=== PATIENT | female | born 1965 | race Hispanic/Latino ===

== ENCOUNTER 2017-08-24 05:49 | Day surgery (SDC) | payer OTHER ==
[2017-08-20 09:14] VITALS: BP 141/86
[2017-08-20 09:21] LABS: BASOPHILS % (AUTO) 0.6 % (0.0-5.0); EOSINOPHILS % (AUTO) 0.8 % (0.0-8.0); HEMATOCRIT 39.2 % (36-48); LYMPHOCYTES % (AUTO) 41.2 % (21.0-51.0); MEAN CORPUSCULAR HEMOGLOBIN 32.9 pg (27.0-33.0); MEAN CORPUSCULAR HGB CONC 34.2 g/dL (32.0-36.0); MEAN CORPUSCULAR VOLUME 96.3 fL (79-99); MONOCYTES % (AUTO) 7.7 % (3.0-13.0); NEUTROPHILS % (AUTO) 49.7 % (40.0-77.0); PLATELET COUNT (AUTO) 282 K/uL (130-400); RED BLOOD CELL COUNT(AUTO) 4.07 MIL/uL (4.00-5.50); WHITE BLOOD COUNT (AUTO) 6.1 K/uL (4.8-10.8)
[2017-08-20 09:25] LABS: APPEARANCE,URINE Clear (CLEAR); BILIRUBIN,URINE Negative (NEGATIVE); COLOR,URINE Yellow (YELLOW); GLUCOSE, URINE (UA) Negative (NEGATIVE); KETONES,URINE Negative (NEGATIVE); LEUKOCYTE ESTERASE ,URINE Moderate (NEGATIVE); NITRATE,URINE Negative (NEGATIVE); OCCULT BLOOD,URINE Negative (NEGATIVE); PROTEIN,URINE Negative (NEGATIVE)
[2017-08-20 09:27] LABS: CREATININE 0.8 mg/dL (0.5-1.5)
[2017-08-20 09:31] LABS: INR 0.95 (0.85-1.15); PARTIAL THROMBOPLASTIN TIME 23.3 SEC (26.3-35.5)
[2017-08-20 09:35] LABS: BACTERIA,URINE Rare /HPF (None Seen); RBC,URINE 0-1 /HPF (0-1); SQUAMOUS EPITHELIAL CELL,UR Few /LPF (0-2)
[~2017-08-24] VITALS: Ht 167.6 cm; Wt 80.9 kg
[2017-08-24] VITALS (11 sets, daily range): BP systolic 95–123; BP diastolic 56–87
[~2017-08-24 05:49] MED LIST: ASPI-555 PO; LOSA25TA21 PO; METO-391 PO; SODIUM CHLORIDE 0.9% 500ML 500 ML IV SCH
[2017-08-24] MEDS ORDERED: SODIUM CHLORIDE 0.9% 1000ML 1,000 ML IV ONE (06:27)
[2017-08-24] MEDS ORDERED: NITROGLYCERIN 5 MG/ML 10 ML VIAL IV ONE (07:14)
[2017-08-24] MEDS ORDERED: ISOVUE-370 50ML VIAL IV ONE (07:14)
[2017-08-24] MEDS ORDERED: HEPARIN SODIUM 1000UNIT/ML 10ML VIAL ONE (07:14)
[2017-08-24] MEDS ORDERED: IOPAMIDOL-370 100 ML VIAL IV ONE (07:14)
[2017-08-24] MEDS ORDERED: LIDOCAINE HCL 1% 20 ML VIAL ONE (07:15)
[2017-08-24] MEDS ORDERED: LIDOCAINE HCL 2% 20ML ONE (09:58)
[2017-08-24] MEDS ORDERED: NITROGLYCERIN 4.1 GM SPRAY TL ONE (10:21)
[2017-08-24] MEDS ORDERED: AMLO5TAB2 PO (10:42)
[2017-08-24] MEDS ORDERED: ACETAMINOPHEN EXTRA STRENGTH 500 MG TABLET ONE (11:55)
[2017-08-24] MEDS ORDERED: ACETAMINOPHEN EXTRA STRENGTH 500 MG TABLET PO SCH (12:15)
[2017-08-25] MEDS ORDERED: ASPIRIN 81 MG EC TAB PO SCH (09:00)
[2017-08-25] MEDS ORDERED: LOSARTAN 50 MG TABLET PO SCH (09:00)
== END 2017-08-24 15:35 | disposition home or self-care (01) ==
LOC: DAH 05:49
PROVIDERS: ATTEND Internal Medicine Cardiovascular Disease
DX: I20.9 Angina pectoris, unspecified (principal); Q24.0 Dextrocardia; I34.0 Nonrheumatic mitral (valve) insufficiency; I21.3 ST elevation (STEMI) myocardial infarction of unspecified site; I47.1 Supraventricular tachycardia; Z79.899 Other long term (current) drug therapy; Z68.42 Body mass index [BMI] 45.0-49.9, adult; Z88.8 Allergy status to other drugs, medicaments and biological substances
CPT/HCPCS: 36415; 71045; 80048; 81001; 85025; 85610; 85730; 87088; 93005; 93458; A4606; C1760; C1894; J1644; J3490 ×2; J7030; Q9967 ×2

== ENCOUNTER → 2019-06-28 | Outpatient (CLI) | payer OTHER ==
[~2019-06-28] MED LIST changes: +AMLO5TAB9 PO; -LOSA25TA21 PO; +LOSA25TA41 PO; -METO-391 PO; -SODIUM CHLORIDE 0.9% 500ML 500 ML IV SCH
== END | disposition home or self-care (01) ==
LOC: SLP 20:34
PROVIDERS: ATTEND Internal Medicine Cardiovascular Disease
DX: G47.33 Obstructive sleep apnea (adult) (pediatric) (principal); I10 Essential (primary) hypertension
CPT/HCPCS: 95810

== ENCOUNTER → 2019-06-30 | Outpatient (CLI) | payer OTHER | END | disposition home or self-care (01) | LOC: SLP 16:22 | PROVIDERS: ATTEND Internal Medicine Cardiovascular Disease | DX: G47.33 Obstructive sleep apnea (adult) (pediatric) (principal); I10 Essential (primary) hypertension | CPT/HCPCS: 95811 ==

== ENCOUNTER 2024-08-23 01:35 | Emergency (ER) | payer OTHER ==
[~2024-08-23] VITALS: Ht 167.6 cm; Wt 83.9 kg
[~2024-08-23 01:35] MED LIST changes: +AMLO-257 PO; -AMLO5TAB9 PO; -ASPI-555 PO; +ASPI-556 PO
[2024-08-23 01:54] LABS: BASOPHILS # (AUTO) 0.02 K/uL (0.00-0.20); BASOPHILS % (AUTO) 0.2 % (0.0-5.0); EOSINOPHILS # (AUTO) 0.03 K/uL (0.00-0.70); EOSINOPHILS % (AUTO) 0.4 % (0.0-8.0); HEMATOCRIT 37.1 % (36-48); IMMATURE GRANULOCYTE ABSOLUTE 0.02 K/uL (0-1); LYMPHOCYTES # (AUTO) 2.7 K/uL (1.0-4.8); LYMPHOCYTES % (AUTO) 32.8 % (21.0-51.0); MEAN CORPUSCULAR HEMOGLOBIN 32.4 pg (27.0-33.0); MEAN CORPUSCULAR HGB CONC 33.7 g/dL (32.0-36.0); MEAN CORPUSCULAR VOLUME 96.1 fL (79-99); MONOCYTES # (AUTO) 0.8 K/uL (0.1-1.0); MONOCYTES % (AUTO) 9.2 % (3.0-13.0); NEUTROPHILS # (AUTO) 4.6 K/uL (1.8-7.7); NEUTROPHILS % (AUTO) 57.2 % (40.0-77.0); PLATELET COUNT (AUTO) 260 K/uL (130-400); RED BLOOD CELL COUNT(AUTO) 3.86 MIL/uL (4.00-5.50); RED CELL DISTRIBUTION WIDTH 12.9 % (11.0-15.5); WHITE BLOOD COUNT (AUTO) 8.1 K/uL (4.8-10.8)
--- NOTE | 2024-08-23 01:58 | ERN ---
ED Note History of Present Illness Stated Complaint: CHEST PAIN Chief Complaint: Chest Pain Time Seen by MD: 01:39 Time Seen by Midlevel: 01:41 Dictation: Ms Estrada is a 59 year old female with history of dextrocardia, angina, tachycardia, hypertension, hyperlipidemia, and CAD/NV who presented to the Emergency Department this morning for evaluation of chest pain. She states that at midnight she developed right sided chest pain (rated 8/10) with right sided arm numbness. She states they pain occurred while at rest and was accompanied by shortness of breath. She had tachycardia and palpitations en route to hospital. She states she has frequent episodes of tachycardia and shortness of breath and usually will take NTG SL. She did not take any this morning because of the RUE numbness. She denies recent illness, fever, chills, cough, edema, abdominal pain, nausea, vomiting, diarrhea, dysuria, headache, or dizziness. Upon arrival to the ED pain decreased to 5/10. PCP: [facility] [place]: Dr. Denise Ramires [address] Light Lamp Cleaner: Dr. Rhett Hardwick Allergies: Coded Allergies: quinidine (Unverified Allergy, Severe, SWOLLEN TONGUE, 08/20/17) Emergency Care OFFICE ANALYST: None Home Meds Active Scripts Amlodipine Besylate (Amlodipine Besylate) 5 Mg Tablet, 5 MG PO DAILY for 30 Days, #30 TAB 3 Refills Prov:RHETT HARDWICK MD 08/24/17 Reported Medications Losartan Potassium (Losartan Potassium) 25 Mg Tablet, 25 MG PO DAILY, TAB 08/20/17 Aspirin (Aspir 81) 81 Mg Tablet.dr, 81 MG PO DAILY, TAB 08/20/17 Past Medical History Past Medical History: High Cholesterol, Hypertension, NV, Other Additional Past Medical Hx: DEXTRACARDIA Surgical History: None PSYCH History: no pertinent psych hx Social History: Negative, Lives with family History: Not Applicable RN Note Reviewed/Agreed w/PFSH: Yes Review of System Dictation REVIEW OF SYSTEMS: CONSTITUTIONAL: Patient denies fevers, chills, sweats and weight changes. EYES: Patient denies any visual symptoms. EARS, NOSE, AND THROAT: No difficulties with hearing. No symptoms of rhinitis or sore throat. CARDIOVASCULAR: Patient denies orthopnea and paroxysmal nocturnal dyspnea. Reports right sided chest pain rated 8/10 onset midnight. She states pain radiates to right arm. She states right arm feels heavy and numb. She states she had palpitations/tachycardia while on the way to the hospital. RESPIRATORY: No wheezing or cough. Reports shortness of breath. GI: No nausea, vomiting, diarrhea, constipation, abdominal pain, hematochezia or melena. : No urinary hesitancy or dribbling. No nocturia or urinary frequency. No abnormal urethral discharge. MUSCULOSKELETAL: No myalgias or arthralgias. NEUROLOGIC: No chronic headaches, no seizures. Patient denies numbness, tingling or weakness. PSYCHIATRIC: Patient denies problems with mood disturbance. No problems with anxiety. ENDOCRINE: No excessive urination or excessive thirst. DERMATOLOGIC: Patient denies any rashes or skin changes. Initial Vital Sign VS Vital Signs Date Time Temp Pulse Resp B/P (MAP) Pulse Ox O2 Delivery O2 Flow Rate FiO2 08/23/24 01:39 98.4 75 18 147/91 97 Room Air 0 08/23/24 01:48 21 Physical Exam Dictation Vital signs: Reviewed. Afebrile Constitutional: No acute distress. Non-toxic appearing. Head/Face: Normocephalic, atraumatic. Eyes: Periorbital areas with no swelling, redness, or edema. Lids and lashes are normal. Conjunctival injection is absent. Sclera anicteric. Pupils equal, round, reactive to light. ENT: Pinnas intact and no signs of trauma or erythema. Ear canals clear and no discharge. TMs no erythema. No nasal discharge or bleeding noted. Oropharynx with no exudate, redness, swelling, masses, exudates, or evidence of obstruction. Uvula midline. Mucous membranes moist. Neck: Trachea midline, no masses palpated, and no cervical lymphadenopathy. No swelling. Supple, full range of motion. Chest/Axilla: No tenderness, no crepitus, no paradoxical movement, no retractions. Cardiovascular: Regular rate, regular rhythm, no murmur, no gallops. Symmetric pulses. No peripheral edema. CP 5/10. Twelve lead EKG reflects a sinus rhythm without ST elevation or depression. BP 146/88. Respiratory: Respirations even and unlabored. Lung sounds clear; no wheezes, rales or rhonchi. Room air SpO2 98% Gastrointestinal: Inspection is normal. No distention is appreciated. Bowel sounds are normal. No mass or organomegaly . There is no tenderness. No rebound. No rigidity. No voluntary or involuntary guarding. No Roberts's sign. Neurological: Normal speech, gross motor function intact, gross sensory function intact. No focal weakness/Paresthesia. Landscaping Manager equal bilaterally/strong Musculoskeletal/Extremities: All extremities have full range of motion, no pain or tenderness on palpation. Symmetric pulses. Integumentary: Intact. Skin is normal color, warm and dry. Cap refill less than 2 seconds. Results (Laboratory/Radiology) Laboratory/Radiology Laboratory Tests Test 08/23/24 01:45 White Blood Count 8.1 K/uL (4.8-10.8) Red Blood Count 3.86 MIL/uL (4.00-5.50) L Hemoglobin 12.5 g/dL (12.0-16.0) Hematocrit 37.1 % (36-48) Mean Corpuscular Volume 96.1 fL (79-99) Mean Corpuscular Hemoglobin 32.4 pg (27.0-33.0) Mean Corpuscular Hemoglobin Concent 33.7 g/dL (32.0-36.0) Red Cell Distribution Width 12.9 % (11.0-15.5) Platelet Count 260 K/uL (130-400) Mean Platelet Volume 8.7 fL (7.5-10.5) Immature Granulocyte % (Auto) 0.2 % (0-1) Neutrophils (%) (Auto) 57.2 % (40.0-77.0) Lymphocytes (%) (Auto) 32.8 % (21.0-51.0) Monocytes (%) (Auto) 9.2 % (3.0-13.0) Eosinophils (%) (Auto) 0.4 % (0.0-8.0) Basophils (%) (Auto) 0.2 % (0.0-5.0) Neutrophils # (Auto) 4.6 K/uL (1.8-7.7) Lymphocytes # (Auto) 2.7 K/uL (1.0-4.8) Monocytes # (Auto) 0.8 K/uL (0.1-1.0) Eosinophils # (Auto) 0.03 K/uL (0.00-0.70) Basophils # (Auto) 0.02 K/uL (0.00-0.20) Absolute Immature Granulocyte (auto 0.02 K/uL (0-1) Nucleated Red Blood Cells 0.0 % (0.0-0.19) Sodium Level 135 mmol/L (136-145) L Potassium Level 3.8 mmol/L (3.5-5.1) Chloride Level 100 mmol/L (101-111) L Carbon Dioxide Level 30 mmol/L (21-32) Blood Urea Nitrogen 23 mg/dL (7-18) H Creatinine 0.8 mg/dL (0.5-1.0) Glomerular Filtration Rate Calc 85 mL/min (>90) Random Glucose 106 mg/dL (70-105) H Total Calcium 8.9 mg/dL (8.5-10.1) Magnesium Level 1.90 mg/dL (1.80-2.40) Total Bilirubin 0.3 mg/dL (0.2-1.0) Direct Bilirubin 0.1 mg/dL (0.0-0.3) Aspartate Amino Transf (AST/SGOT) 27 U/L (10-37) Alanine Aminotransferase (ALT/SGPT) 42 U/L (12-78) Alkaline Phosphatase 81 U/L (50-136) Total Creatine Kinase 179 U/L (21-232) Troponin I High Sensitivity 17 ng/L (4-50) B-Type Natriuretic Peptide 23 pg/mL (0-100) Total Protein 7.3 g/dL (6.0-8.3) Albumin 4.1 g/dL (3.5-5.0) Labs Reviewed?: Yes EKG Comment: EKG Interpretation: Time Reviewed: 134 Ventricular rate: 72 bpm MS Interval: 177 ms QRS duration: [address] segment elevation or depression. Clinical impression: Sinus rhythm EKG Reviewed and interpreted by Dr. Breanne Cisse X-RAY Comment: Chest x-ray revealed dextrocardia; clear lung guo as interpreted by myself ED Course ED Course Orders Procedure Category Date Status Time Vital Signs Per CPOE 08/23/24 Transmitted Routine 01:37 B-Type Natriuretic LAB 08/23/24 Complete Peptide 01:37 Chest 1vw RAD 08/23/24 Taken 01:37 12 Lead Ekg Tracing- EKG 08/23/24 Logged Technical 01:37 Oxygen By Nc/Pulse Ox CPOE 08/23/24 Transmitted 01:37 Maintain Iv CPOE 08/23/24 Transmitted 01:37 Iv Insertion CPOE 08/23/24 Transmitted 01:37 Cardiac Monitoring CPOE 08/23/24 Transmitted 01:37 Pulse Oximetry With CPOE 08/23/24 Transmitted Vs And Prn 01:37 Cbc With Differential LAB 08/23/24 Complete 01:37 Activity: Br W/Brp CPOE 08/23/24 Transmitted With Assist 01:37 Creatine Kinase, Total LAB 08/23/24 Complete 01:37 Troponin I High LAB 08/23/24 Complete Sensitivity 01:37 Urinalysis Profile LAB 08/23/24 In Process 01:37 Basic Metabolic Panel LAB 08/23/24 Complete 01:37 Aspirin 81mg Chew Tab PHA 08/23/24 Complete (Aspirin 81mg Chew 02:00 Nitroglycerin 0.4mg PHA 08/23/24 In Process Sl Tab (Nitrostat) 02:00 Hepatic Function Panel LAB 08/23/24 Complete 01:45 Magnesium LAB 08/23/24 Complete 01:45 Troponin I High LAB 08/23/24 Logged Sensitivity 02:16 Current Medications Medications (Trade) Dose Ordered Sig/Baylee Route PRN Reason Start Time Stop Time Status Last Admin Dose Admin Aspirin (Aspirin 81mg Chew Tab) 324 mg ONCE ONCE PO 08/23/24 02:00 08/23/24 02:01 DC 08/23/24 02:09 Nitroglycerin (Nitrostat) 0.4 mg AD PRN SL CHEST PAIN 08/23/24 02:00 09/22/24 01:59 08/23/24 02:09 Vital Signs Date Time Temp Pulse Resp B/P (MAP) Pulse Ox O2 Delivery O2 Flow Rate FiO2 08/23/24 02:11 72 16 132/84 97 Room Air* 0 21 08/23/24 01:48 98.4 69 14 146/88 99 Room Air* 0 21 08/23/24 01:39 98.4 75 18 147/91 97 Room Air 0 Vital signs stable. Twelve lead EKG reflects a sinus rhythm without acute ST changes. Chest x-ray revealed dextrocardia; lung guo are clear. Laboratory findings as noted below. No elevation of WBCs. H&H are stable. Na/Cl 135/100, BUN 23, and glucose 106. Troponin negative x 2. She received dose aspirin 324 as well as sublingual nitro x1. Chest pain resolved as well as numbness to the right arm. She would like to be discharged to home and states she will follow up with her retail specialist; Dr. Rhett Hardwick. She was provided with copies of her labs and EKG HEART Score Response (Comments) Value History: Moderate suspicion (+1) 1 EKG: Normal 0 Age: 45-65yrs (+1) 1 Risk Factors: 3+ risk factors (+2) 2 Initial Troponin: Normal limit (0) 0 HEART Score Risk: Mod Risk for MACE (4-6) Total 4 Medical Decision Making MDM MDM: Differential diagnosis: ACS, unstable angina muscle strain, electrolyte derangement Rationale: Tests considered and ordered secondary to shared decision making include: Lab, EKG, chest x-ray Previous outside records reviewed: Old ER visits. Risk of complication and/or morbidity or mortality of patient management: None Medications-Per medication reconciliation Need for hospitalization: Patient does not meet criteria for hospitalization. Need for emergency major/minor surgery: No There are no social concerns with this patient. Prescription drug management: Continue home meds, NTG Prescriptions will include symptomatic care Patient's prior external medical records from other ER visits were reviewed by me as indicated. Prior testing and results from previous visits were reviewed. Prior tests were taken into account with medical decision making and resource utilization, independent historian/historians were used to obtain complete medical history. I independently interpreted the test that were performed, results were reviewed by me and considered findings on radiology if ordered. Medical management and examination interpretation discussions were had by me with other qualified healthcare professionals as indicated for the patient's care. DX & DISP Disposition: Discharge Departure Impression: Primary Impression: Chest pain Additional Impression: Dextrocardia Condition: Stable Additional Instructions: Rest. Drink plenty of fluids continue to use your nitroglycerin sublinguals at home. Continue home medications. Keep a log of your symptoms. Follow up with retail specialist; Dr. Rhett Hardwick preferably this week. Take copy of your labs and EKG. Return to the emergency department for any worsening of symptoms or concerns. Referrals: Hollie RAMIRES MD (PCP) RHETT HARDWICK MD Time of Disposition: 02:47 TAL DARBY NP Aug 23, 2024 01:58
[2024-08-23 02:04] LABS: CREATININE 0.8 mg/dL (0.5-1.0); POTASSIUM 3.8 mmol/L (3.5-5.1)
[2024-08-23] MEDS: NITROGLYCERIN 0.4 MG SL TAB SL PRN (02:09)
[2024-08-23] MEDS: ASPIRIN 81MG CHEW TAB PO ONE (02:09)
[2024-08-23 02:10] LABS: ALBUMIN 4.1 g/dL (3.5-5.0); B-TYPE NATRIURETIC PEPTIDE 23 pg/mL (0-100); BILIRUBIN,DIRECT 0.1 mg/dL (0.0-0.3); BILIRUBIN,TOTAL 0.3 mg/dL (0.2-1.0); MAGNESIUM 1.9 mg/dL (1.80-2.40); TOTAL PROTEIN, SERUM 7.3 g/dL (6.0-8.3)
[2024-08-23 02:48] LABS: APPEARANCE,URINE CLEAR (CLEAR); BILIRUBIN,URINE NEGATIVE (NEGATIVE); COLOR,URINE COLORLESS (YELLOW); GLUCOSE, URINE (UA) NEGATIVE (NEGATIVE); KETONES,URINE NEGATIVE (NEGATIVE); LEUKOCYTE ESTERASE ,URINE 25 Leu/uL (NEGATIVE); NITRATE,URINE NEGATIVE (NEGATIVE); OCCULT BLOOD,URINE NEGATIVE (NEGATIVE); PH,URINE 5.5 (5.0-8.0); PROTEIN,URINE NEGATIVE (NEGATIVE); UROBILINOGEN,URINE 0.2 mg/dL (0.2-1.0)
[2024-08-23 02:49] LABS: ADD UA MICROSCOPIC YES; RBC,URINE 0-1 /HPF (0-1); SQUAMOUS EPITHELIAL CELL,UR RARE /HPF (0-2)
[2024-08-23 04:02] VITALS: BP 110/65; PULSE 70; RESP 15; TEMP 98.1; O2SAT 98
--- NOTE | 2024-08-23 06:27 | EKG ---
[facility] Test Date: 2024-08-23 Test Time: 01:35:23 Pat Name: JOSR DOBBINS Department: ED Room: Gender: F Pharmacist: [id number] : 1965 Requested By: MELISSA BRICE Order Number: [id number] Reading MD: Rhett Hardwick Measurements Intervals [place] Rate: 72 P: -79 IN: 177 QRS: 219 QRSD: 105 T: 50 QT: 388 QTc: 424 Interpretive Statements Normal Sinus Rhythm Milsplaced limb leads Anterolateral infarct, age indeterminate Compared to ECG 08/20/2017 09:06:20 Ectopic atrial rhythm now present Right ventricular hypertrophy now present Sinus rhythm no longer present First degree AV block no longer present Myocardial infarct finding still present Electronically Signed On 08-24-2024 13:41:06 CDT by Rhett Hardwick Please click the below link to view image of tracing.
--- NOTE | 2024-08-23 11:30 | HMCIMG ---
PORTABLE CHEST RADIOGRAPH INDICATION: CHEST PAIN COMPARISON: None FINDINGS: Dextrocardia. Heart size is normal. The pulmonary vascularity and teena appear normal. No abnormal pulmonary parenchymal opacity or consolidation identified. No significant pleural effusion noted. No pneumothorax detected. IMPRESSION: Dextrocardia without radiographic evidence for any acute cardiopulmonary process.
== END 2024-08-23 04:12 | disposition home or self-care (01) ==
LOC: EDH 01:35
DX: R07.89 Other chest pain (principal); Q24.0 Dextrocardia; E78.00 Pure hypercholesterolemia, unspecified; I25.2 Old myocardial infarction; I10 Essential (primary) hypertension; Z79.82 Long term (current) use of aspirin; Z79.899 Other long term (current) drug therapy
CPT/HCPCS: 36415; 71045; 80048; 80076; 81001; 82550; 83735; 83880; 84484; 85025; 93005; 99285

== ENCOUNTER 2024-08-31 18:06 | Emergency (ER) | payer OTHER ==
[~2024-08-31] VITALS: Ht 167.6 cm; Wt 83.9 kg
[2024-08-31 18:56] LABS: BASOPHILS # (AUTO) 0.03 K/uL (0.00-0.20); BASOPHILS % (AUTO) 0.4 % (0.0-5.0); EOSINOPHILS # (AUTO) 0.03 K/uL (0.00-0.70); EOSINOPHILS % (AUTO) 0.4 % (0.0-8.0); HEMATOCRIT 36.5 % (36-48); IMMATURE GRANULOCYTE ABSOLUTE 0.02 K/uL (0-1); LYMPHOCYTES # (AUTO) 2.1 K/uL (1.0-4.8); LYMPHOCYTES % (AUTO) 29.2 % (21.0-51.0); MEAN CORPUSCULAR HEMOGLOBIN 31.9 pg (27.0-33.0); MEAN CORPUSCULAR HGB CONC 32.6 g/dL (32.0-36.0); MEAN CORPUSCULAR VOLUME 97.9 fL (79-99); MONOCYTES # (AUTO) 0.6 K/uL (0.1-1.0); MONOCYTES % (AUTO) 8.9 % (3.0-13.0); NEUTROPHILS # (AUTO) 4.4 K/uL (1.8-7.7); NEUTROPHILS % (AUTO) 60.8 % (40.0-77.0); PLATELET COUNT (AUTO) 267 K/uL (130-400); RED BLOOD CELL COUNT(AUTO) 3.73 MIL/uL (4.00-5.50); RED CELL DISTRIBUTION WIDTH 13.2 % (11.0-15.5); WHITE BLOOD COUNT (AUTO) 7.2 K/uL (4.8-10.8)
--- NOTE | 2024-08-31 19:00 | HMCIMG ---
PORTABLE CHEST RADIOGRAPH INDICATION: Pain COMPARISON: 08/23/2024 FINDINGS: Dextrocardia. The pulmonary vascularity and teena appear normal. No abnormal pulmonary parenchymal opacity or consolidation identified. No significant pleural effusion noted. No pneumothorax detected. IMPRESSION: Dextrocardia without radiographic evidence for any acute cardiopulmonary process.
[2024-08-31 19:01] LABS: CREATININE 0.8 mg/dL (0.5-1.0); POTASSIUM 4.3 mmol/L (3.5-5.1)
--- NOTE | 2024-08-31 19:31 | NUR ---
PT CARE ASSUMED AT THIS TIME
--- NOTE | 2024-08-31 19:43 | NUR ---
URINE CUP GIVEN TO PT FOR URINE COLLECTION
[2024-08-31 20:00] LABS: APPEARANCE,URINE CLEAR (CLEAR); BILIRUBIN,URINE NEGATIVE (NEGATIVE); COLOR,URINE YELLOW (YELLOW); GLUCOSE, URINE (UA) NEGATIVE (NEGATIVE); KETONES,URINE 5 mg/dL (NEGATIVE); LEUKOCYTE ESTERASE ,URINE NEGATIVE Leu/uL (NEGATIVE); NITRATE,URINE NEGATIVE (NEGATIVE); OCCULT BLOOD,URINE NEGATIVE (NEGATIVE); PROTEIN,URINE NEGATIVE (NEGATIVE)
[2024-08-31 20:04] LABS: MUCUS,URINE RARE LPF (None Seen); SQUAMOUS EPITHELIAL CELL,UR RARE /HPF (0-2); YEAST,URINE BUDDING RARE /HPF (None Seen)
[2024-08-31 20:05] LABS: HCG,QUALITATIVE URINE NEGATIVE (NEGATIVE)
--- NOTE | 2024-08-31 21:24 | ERN ---
General Chief Complaint: Chest Pain Stated Complaint: CHEST PAIN Time Seen by MD: 18:11 Time Seen by Midlevel: 18:11 Source: patient History of Present Illness Initial Comments 59-year-old female who presents to the emergency department due to chest pain onset 1 hour prior to arrival. Patient states she took two sublingual nitros and four baby aspirins. Patient was evaluated for chest pain one week ago and was discharged home. Denies any difficulty breathing, headache or further associated symptoms. Patient reports she has been under lot of stress for the past couple of months. Allergies: Coded Allergies: quinidine (Unverified Allergy, Severe, SWOLLEN TONGUE, 08/20/17) Home Meds Active Scripts Amlodipine Besylate (Amlodipine Besylate) 5 Mg Tablet, 5 MG PO DAILY for 30 Days, #30 TAB 3 Refills Prov:RHETT SHANKS MD 08/24/17 Reported Medications Losartan Potassium (Losartan Potassium) 25 Mg Tablet, 25 MG PO DAILY, TAB 08/20/17 Aspirin (Aspir 81) 81 Mg Tablet.dr, 81 MG PO DAILY, TAB 08/20/17 Past Medical History Past Medical History: High Cholesterol, Hypertension, CT, Other Medical History Other: DEXTRACARDIA Past Surgical History: Other Surgical History Other: LEFT HEART CATHS Social History Social History: Negative, Lives with family Female( History) History: Not Applicable ROS Dictation Constitutional: Negative for fever,chills, and weight loss Eyes: Negative for injury, pain,redness, and discharge ENT: Negative for injury,pain or swelling Cardiovascular: Positive for chest pain Negative for palpitations, and edema Respiratory: Negative for shortness of breath, cough, and wheezing, Abdomen/GI: Negative for abdominal pain, nausea, vomiting, diarrhea, and constipation Back: Negative for injury and pain : Negative for painful urination, bleeding or discharge MS/Extremity: Negative for injury and deformity Skin: Negative for rash, and discoloration Neuro: Negative for headache, weakness, numbness, tingling, and seizure Psych: Negative for suicide ideation, homicidal ideation, and hallucinations Physical Exam Physical Exam Dictation General: awake, alert, no acute distress Head/Face: Normocephalic, atraumatic Eyes: PERRL, EOMI, normal conjuctiva ENT: oral cavity clear, oral mucosa moist Neck: Supple, normal range of motion Cardiovascular: RRR, normal S1/S2 Respiratory: CTAB, no respiratory distress, no rales or wheezes Abdomen: Soft, non-tender, non-distended, normal bowel sounds, no guarding or rebound. Skin: Warm, dry, normal turgor, no rash MS/Extremity: Pulses equal, no cyanosis, neurovascular intact, FROM Neuro: COAx4, GCS 15, strength 5/5, CN 2-12 intact, normal cerebellar exam, normal gait, Psych: Normal behavior, mood, and affect normal Results Laboratory and Microbiology Lab and Micro Result Laboratory Tests Test 08/31/24 18:38 08/31/24 19:52 08/31/24 20:34 White Blood Count 7.2 K/uL (4.8-10.8) Red Blood Count 3.73 MIL/uL (4.00-5.50) L Hemoglobin 11.9 g/dL (12.0-16.0) L Hematocrit 36.5 % (36-48) Mean Corpuscular Volume 97.9 fL (79-99) Mean Corpuscular Hemoglobin 31.9 pg (27.0-33.0) Mean Corpuscular Hemoglobin Concent 32.6 g/dL (32.0-36.0) Red Cell Distribution Width 13.2 % (11.0-15.5) Platelet Count 267 K/uL (130-400) Mean Platelet Volume 9.1 fL (7.5-10.5) Immature Granulocyte % (Auto) 0.3 % (0-1) Neutrophils (%) (Auto) 60.8 % (40.0-77.0) Lymphocytes (%) (Auto) 29.2 % (21.0-51.0) Monocytes (%) (Auto) 8.9 % (3.0-13.0) Eosinophils (%) (Auto) 0.4 % (0.0-8.0) Basophils (%) (Auto) 0.4 % (0.0-5.0) Neutrophils # (Auto) 4.4 K/uL (1.8-7.7) Lymphocytes # (Auto) 2.1 K/uL (1.0-4.8) Monocytes # (Auto) 0.6 K/uL (0.1-1.0) Eosinophils # (Auto) 0.03 K/uL (0.00-0.70) Basophils # (Auto) 0.03 K/uL (0.00-0.20) Absolute Immature Granulocyte (auto 0.02 K/uL (0-1) Nucleated Red Blood Cells 0.0 % (0.0-0.19) Sodium Level 145 mmol/L (136-145) Potassium Level 4.3 mmol/L (3.5-5.1) Chloride Level 107 mmol/L (101-111) Carbon Dioxide Level 30 mmol/L (21-32) Blood Urea Nitrogen 19 mg/dL (7-18) H Creatinine 0.8 mg/dL (0.5-1.0) Glomerular Filtration Rate Calc 85 mL/min (>90) Random Glucose 117 mg/dL (70-105) H Total Calcium 9.1 mg/dL (8.5-10.1) Troponin I High Sensitivity 9 ng/L (4-50) 10 ng/L (4-50) Urine Color YELLOW (YELLOW) Urine Appearance CLEAR (CLEAR) Urine pH 6.0 (5.0-8.0) Urine Specific [place] 1.025 (1.001-1.031) Urine Protein NEGATIVE mg/dL (NEGATIVE) Urine Glucose (UA) NEGATIVE mg/dL (NEGATIVE) Urine Ketones 5 mg/dL (NEGATIVE) H Urine Occult Blood NEGATIVE (NEGATIVE) Urine Nitrate NEGATIVE (NEGATIVE) Urine Bilirubin NEGATIVE mg/dL (NEGATIVE) Urine Urobilinogen 2.0 mg/dL (0.2-1.0) H Urine Leukocyte Esterase NEGATIVE [place]/uL Urine RBC 2-5 /HPF (0-1) H Urine WBC 6-10 /HPF (0-1) H Urine Squamous Epithelial Cells RARE /HPF (0-2) Urine Bacteria None /HPF (None Seen) Urine Yeast RARE /HPF (None Seen) Urine HCG, Qualitative NEGATIVE (NEGATIVE) Labs Reviewed?: Yes EKG/XRAY/US/CT/MRI EKG Comment Date: 08/31/2024 Time: 18 11 Rate: 63 EKG interpretation: Inferior infarct old, anterior lateral infarct age undetermined, no STEMI, ectopic atrial rhythm Reviewed by ED Attending X-RAY Comment REASON: Pain ORDERING PHYSICIAN: SIMON ROJAS PROCEDURE: CXR1VW - CHEST 1VW PORTABLE CHEST RADIOGRAPH INDICATION: Pain COMPARISON: 08/23/2024 FINDINGS: Dextrocardia. The pulmonary vascularity and teena appear normal. No abnormal pulmonary parenchymal opacity or consolidation identified. No significant pleural effusion noted. No pneumothorax detected. IMPRESSION: Dextrocardia without radiographic evidence for any acute cardiopulmonary process. DICTATED BY: BRENDA SUGGS MD DATE: 08/31/241857 MDM MDM: Differential diagnosis: CT, ACS, anxiety Rationale: 59-year-old female who presents to the emergency department due to chest pain onset 1 hour prior to arrival. Patient states she took two sublingual nitros and four baby aspirins. Patient was evaluated for chest pain one week ago and was discharged home. Denies any difficulty breathing, headache or further associated symptoms. Patient reports she has been under lot of stress for the past couple of months. During ED course vitals within normal limits. Per physical examination patient is in no acute distress, nonlabored breathing. Labs obtained are within normal limits, nonspecific. UA negative for urinary tract infection. Initial troponin of 9 repeat troponin 10. Chest x-ray indicates dextrocardia with no acute pulmonary findings. Heart score low risk. Patient was educated on findings and diagnosis. Admission was discussed with patient due to this being her 2nd visit for chest pain. However patient reports she is feeling a lot better chest pain has resolved and she would like to be discharged. Patient was advised to follow up outpatient with Cardiology and PCP. Return to the emergency department if any worsening symptoms. Patient verbalized understanding. There are no social concerns with this patient. I independently interpreted the test that were performed, results were reviewed by me and considered findings on radiology if ordered. Medical management and examination interpretation discussions were had by me with other qualified healthcare professionals as indicated for the patient's care. ED Course Orders Procedure Category Date Status Time Cbc With Differential LAB 08/31/24 Complete 18:10 Basic Metabolic Panel LAB 08/31/24 Complete 18:10 Urinalysis LAB 08/31/24 Complete W/Microscopic 18:10 ,Urine Test LAB 08/31/24 Complete 18:10 Troponin I High LAB 08/31/24 Complete Sensitivity 18:10 12 Lead Ekg Tracing- EKG 08/31/24 Logged Technical 18:10 Chest 1vw RAD 08/31/24 Resulted 18:19 Troponin I High LAB 08/31/24 Complete Sensitivity 19:42 Culture Urine CAROL 08/31/24 In Process 20:10 Vital Signs Date Time Temp Pulse Resp B/P (MAP) Pulse Ox O2 Delivery O2 Flow Rate FiO2 08/31/24 21:49 98.1 60 16 105/66 97 Room Air* 0 21 08/31/24 20:45 98.1 65 15 125/60 98 Room Air* 0 21 08/31/24 19:40 98.1 60 15 128/65 98 Room Air* 0 21 08/31/24 18:33 97.5 65 17 115/67 99 Room Air* 0 21 08/31/24 18:07 98.1 65 16 117/74 97 Room Air DX & DISP Disposition: Discharge Departure Impression: Primary Impression: Chest pain with low risk for cardiac etiology Condition: Stable Additional Instructions: Discharge home. Rest. Follow up with primary care DrNader in 24 hours. Return to the ER for any acute changes or worsening symptoms. If any medications were prescribed take as directed. Okay to continue home medications unless otherwise discussed during your visit in the emergency room today. Patient was also advised to follow-up with primary care physician in 1 to 2 days for continued monitoring. Referrals: Hollie CORONA MD (PCP) I performed the substantive portion of the visit. I have reviewed and personally made and approve the management plan that is documented in the notes by myself or the MARIO. I acknowledge full responsibility for the patient's management plan. SIMON ROJAS Aug 31, 2024 21:24
[2024-08-31 21:49] VITALS: BP 105/66; PULSE 60; RESP 16; TEMP 98.1; O2SAT 97
--- NOTE | 2024-09-01 07:34 | EKG ---
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
== END 2024-08-31 21:53 | disposition home or self-care (01) ==
LOC: EDH 18:06
DX: R07.89 Other chest pain (principal); E78.00 Pure hypercholesterolemia, unspecified; I10 Essential (primary) hypertension; I25.2 Old myocardial infarction; Z79.82 Long term (current) use of aspirin; Z79.899 Other long term (current) drug therapy
CPT/HCPCS: 36415; 71045; 80048; 81001; 81025; 84484; 85025; 87086; 93005; 99285